=== PATIENT | female | born 1965 | race Caucasian/White ===

== ENCOUNTER 2017-04-12 18:13 | Emergency (ER) | payer SELFPAY ==
[~2017-04-12] VITALS: Ht 167.6 cm; Wt 81.5 kg
[~2017-04-12 18:13] MED LIST: ADVAI250I PO; ALBU8I INH; VENTAER INH
[2017-04-12 18:14] VITALS: BP 124/71; PULSE 126; RESP 20; TEMP 101.3; O2SAT 95
--- NOTE | 2017-04-12 18:57 | RADRPT ---
EXAM DATE/TIME: 04/12/2017 18:37 [facility] COMPARISON: CHEST PA & LAT, June 14, 2015, 9:02. INDICATIONS : Cold and flu like symtoms for 1 month. MEDICAL HISTORY : Chronic obstructive pulmonary disease. Asthma. SURGICAL HISTORY : None. ENCOUNTER: Initial ACUITY: 1 month PAIN SCORE: 4/10 LOCATION: Bilateral chest FINDINGS: There is right base infiltrate compatible to pneumonia. I believe this is mostly in the right middle lobe. Left lung reasonably clear. No effusion demonstrated. No pneumothorax. CONCLUSION: Right middle lobe pneumonia. Vj Elizondo MD on April 12, 2017 at 18:54 Board Certified Radiologist. This report was verified electronically.
[2017-04-12 19:05] LABS: AUTOMATED NEUTROPHIL # 7.4 TH/MM3 (1.8-7.7); BASOPHIL # 0.1 TH/MM3 (0-0.2); BASOPHIL % 0.5 % (0.0-2.0); EOSINOPHIL # 0.1 TH/MM3 (0-0.4); EOSINOPHIL % 0.9 % (0.0-4.0); HEMATOCRIT 38.8 % (35.0-46.0); HEMOGLOBIN 13.3 GM/DL (11.6-15.3); LYMPH % 19.1 % (9.0-44.0); MEAN CELL VOLUME 89.1 FL (80.0-100.0); MEAN CORPUSCULAR HEMOGLOBIN 30.5 PG (27.0-34.0); MEAN CORPUSCULAR HGB CONC 34.3 % (32.0-36.0); MEAN PLATELET VOLUME 7.6 FL (7.0-11.0); MONO % 9.8 % (0.0-8.0); NEUT % 69.7 % (16.0-70.0); PLATELET COUNT 356 TH/MM3 (150-450); RED BLOOD COUNT 4.36 MIL/MM3 (4.00-5.30); RED CELL DISTRIBUTION WIDTH 13.6 % (11.6-17.2); WHITE BLOOD COUNT 10.6 TH/MM3 (4.0-11.0)
[2017-04-12 19:19] LABS: BICARBONATE 24.6 MEQ/L (21.0-32.0); CALCIUM 9.2 MG/DL (8.5-10.1); CREATININE 0.74 MG/DL (0.50-1.00)
[2017-04-12] MEDS ORDERED: ACETAMINOPHEN 325 MG TAB PO ONE (20:15)
[2017-04-12] MEDS ORDERED: VENTAER INH (20:21)
[2017-04-12] MEDS ORDERED: LEVOFLOXACIN 750 MG PREMIX INJ 150 ML IV ONE (20:30)
[2017-04-12] MEDS ORDERED: AZITHROMYCIN INJ 500 MG in SODIUM CHLOR 0.9% 250 ML INJ 250 ML IV ONE (20:30)
[2017-04-12] MEDS ORDERED: LEVA750T9 PO (20:36)
[2017-04-12] MEDS ORDERED: ALBUAER3 INH (20:36)
[2017-04-12] MEDS ORDERED: VIST50CA PO (20:36)
--- NOTE | 2017-04-12 21:00 | PD ---
HPI Chief Complaint: Cold / Flu Symptoms Time Seen by Provider: 20:13 Travel History International Travel<30 days: No Contact w/Intl Traveler<30days: No Traveled to known affect area: No History of Present Illness HPI 51-year-old female that presents to the ED for evaluation of cold-like symptoms. Per patient she's had cold like symptoms for about a month and it seemed like he got better until Sunday she started getting sick again. Per patient since that she's been having bad cough and congestion and body aches. She denies any sick contacts. Per patient most of her family members have been better but only her has been getting worse. She does have a history of COPD and uses inhalers. She states that she has no insurance and borrows the inhalers from the neighbor. She denies any medical issues. She does have allergies to Bactrim and cephalexin. She denies any headache. No recent travel. No blood thinner use. No chest pain. Cough is productive. She denies feeling short of breath at times with a bad cough. Productive cough. PFSH Past Medical History Arthritis: No Asthma: Yes Autoimmune Disease: No Blood Disorders: No Anxiety: No Depression: No Heart Rhythm Problems: No Cancer: No Cardiovascular Problems: No High Cholesterol: No Chest Pain: No Congestive Heart Failure: No COPD: Yes Cerebrovascular Accident: No Diabetes: No Diminished Hearing: No Gastrointestinal Disorders: No GERD: No Glaucoma: No Headaches: No Hepatitis: No Hiatal Hernia: No Hypertension: No Kidney Stones: No Musculoskeletal: No Neurologic: No Psychiatric: No Reproductive: No Respiratory: Yes (COPD) Myocardial Infarction: No Renal Failure: No Seizures: No Sickle Cell Disease: No Sleep Apnea: No Thyroid Disease: No Ulcer: No Tetanus Vaccination: > 5 Years Influenza Vaccination: No ?: Not : 6 Para: 4 Miscarriage: 3 Past Surgical History AICD: No Hysterectomy: No Pacemaker: No Other Surgery: Yes (SINUS SURGERY) Social History Alcohol Use: Yes (weekly) Tobacco Use: Yes (3/4 ppd) Substance Use: No (marijuana) Allergies-Medications (Allergen,Severity, Reaction): Coded Allergies: cephalexin (Unverified Allergy, Severe, HIVES, 04/12/17) sulfamethoxazole (Unverified Allergy, Intermediate, hives, 04/12/17) trimethoprim (Unverified Allergy, Intermediate, hives, 04/12/17) Reported Meds & Prescriptions Reported Meds & Active Scripts Active Vistaril (Hydroxyzine Pamoate) 50 Mg Cap 50 Mg PO BID PRN Proair Hfa 8.5 GM Inh (Albuterol Sulfate) 90 Mcg/Act Aer 2 Puff INH Q4-6H PRN 108 mcg/actuation Levaquin (Levofloxacin) 750 Mg Tablet 750 Mg PO DAILY 10 Days Reported Ventolin Hfa 18 GM Inh (Albuterol Sulfate) 90 Mcg/Act Aer 2 Puff INH Q4H PRN Review of Systems Except as stated in HPI: all other systems reviewed are Neg Physical Exam Narrative GENERAL: Well-nourished, well-developed patient in no apparent distress. SKIN: Warm and dry. HEAD: Atraumatic. Normocephalic. EYES: Pupils equal and round reactive to light and accommodation. No scleral icterus. No injection or drainage. ENT: No nasal bleeding or discharge. Mucous membranes pink and moist. TMs are clear with no sign of infection or perforation. No mastoid tenderness. Ear canals are intact bilaterally. No lymphadenopathy. Nostril mucosa is red and moist with clear mucus noted. No sinus tenderness to palpation noted. Tonsils are not enlarged or swollen. No ulvua Deviation. Tongue is midline. NECK: Trachea midline. No JVD. No meningeal signs noted CARDIOVASCULAR: Regular rate and rhythm. RESPIRATORY: No accessory muscle use. Clear to auscultation. Breath sounds equal bilaterally. GASTROINTESTINAL: Abdomen soft, non-tender, nondistended. Hepatic and splenic margins not palpable. MUSCULOSKELETAL: Extremities without clubbing, cyanosis, or edema. No obvious deformities. NEUROLOGICAL: Awake and alert. No obvious cranial nerve deficits. Motor grossly within normal limits. Five out of 5 muscle strength in the arms and legs. Normal speech. PSYCHIATRIC: Appropriate mood and affect; insight and judgment normal. Data Data Last Documented VS Vital Signs Date Time Temp Pulse Resp B/P (MAP) Pulse Ox O2 Delivery O2 Flow Rate FiO2 04/12/17 20:19 94 Room Air 04/12/17 18:14 101.3 126 20 124/71 (88) Orders Orders Chest, Pa & Lat (04/12/17 ) Influenzae A/B Antigen (04/12/17 18:25) Complete Blood Count With Diff (04/12/17 18:25) Basic Metabolic Panel (Bmp) (04/12/17 18:25) Acetaminophen (Tylenol) (04/12/17 20:15) Azithromycin Inj (Zithromax Inj) (04/12/17 20:30) Levofloxacin 750 Mg Premix Inj (Levaquin (04/12/17 20:30) Ed Discharge Order (04/12/17 20:42) Labs Laboratory Tests Test 04/12/17 18:30 White Blood Count 10.6 TH/MM3 Red Blood Count 4.36 MIL/MM3 Hemoglobin 13.3 GM/DL Hematocrit 38.8 % Mean Corpuscular Volume 89.1 FL Mean Corpuscular Hemoglobin 30.5 PG Mean Corpuscular Hemoglobin Concent 34.3 % Red Cell Distribution Width 13.6 % Platelet Count 356 TH/MM3 Mean Platelet Volume 7.6 FL Neutrophils (%) (Auto) 69.7 % Lymphocytes (%) (Auto) 19.1 % Monocytes (%) (Auto) 9.8 % Eosinophils (%) (Auto) 0.9 % Basophils (%) (Auto) 0.5 % Neutrophils # (Auto) 7.4 TH/MM3 Lymphocytes # (Auto) 2.0 TH/MM3 Monocytes # (Auto) 1.0 TH/MM3 Eosinophils # (Auto) 0.1 TH/MM3 Basophils # (Auto) 0.1 TH/MM3 CBC Comment DIFF FINAL Differential Comment Blood Urea Nitrogen 10 MG/DL Creatinine 0.74 MG/DL Random Glucose 101 MG/DL Calcium Level 9.2 MG/DL Sodium Level 133 MEQ/L Potassium Level 3.6 MEQ/L Chloride Level 98 MEQ/L Carbon Dioxide Level 24.6 MEQ/L Anion Gap 10 MEQ/L Estimat Glomerular Filtration Rate 82 ML/MIN MDM Medical Decision Making Medical Screen Exam Complete: Yes Emergency Medical Condition: Yes Medical Record Reviewed: Yes Interpretation(s) Influenza negative Last Impressions Chest X-Ray 04/12/17 0000 Signed Impressions: Service Date/Time: April 18:37 - CONCLUSION: Right middle lobe pneumonia. Vj Elizondo MD CBC & BMP Diagram 04/12/17 18:30 Calcium Level 9.2 Differential Diagnosis Pneumonia versus bronchitis versus sinusitis Narrative Course 51-year-old female that presents to the ED for evaluation of cold like symptoms. Patient was properly examined and was found to have signs and symptoms consistent appears to be possible pneumonia. Labs and imaging ordered in triage. Labs and imaging came back positive for pneumonia. No obvious leukocytosis. Patient does appear to be slightly tachycardic and has a fever. She was given Tylenol here. Patient will be started on IV Levaquin and given a prescription for Levaquin as she does have a history of COPD. She does have allergies to cephalosporins. She was given a voucher to help pay for her meds. She was given a refill of her albuterol. She was given a prescription for Vistaril to help with anxiety and sleep. Told to follow closely with PCP. See ED worsening symptoms. Take OTC meds as needed. Case discussed with my attending who agrees with plan. Diagnosis Primary Impression: Pneumonia Qualified Codes: J18.1 - Lobar pneumonia, unspecified organism Patient Instructions: General Instructions Additional Instructions: Motrin and Tylenol for pain and fever. You can use [id number] antihistamine as well as well as Mucinex as needed for runny nose and congestion. Cough drops for cough as needed. Drink plenty of fluids. Follow-up with PCP. See ED for worsening symptoms. Med/Other Pt SpecificInfo: Prescription(s) given Scripts Hydroxyzine Pamoate (Vistaril) 50 Mg Cap 50 MG PO BID Y for SLEEP, #10 CAP 0 Refills Prov: Jose Cline MD 04/12/17 Albuterol 8.5 GM Inh (Proair Hfa 8.5 GM Inh) 90 Mcg/Act Aer 2 PUFF INH Q4-6H Y for SHORTNESS OF BREATH, #1 INHALER 0 Refills 108 mcg/actuation Prov: Jose Cline MD 04/12/17 Levofloxacin (Levaquin) 750 Mg Tablet 750 MG PO DAILY for Infection for 10 Days, #10 TAB 0 Refills Prov: Jose Cline MD 04/12/17 Disposition: 01 DISCHARGE HOME Condition: Stable Mike Freedman Apr 12, 2017 21:00
== END 2017-04-12 22:58 | disposition home or self-care (01) ==
LOC: NEPE 18:13
DX: J18.1 Lobar pneumonia, unspecified organism (principal); J44.0 Chronic obstructive pulmonary disease with (acute) lower respiratory infection; F17.200 Nicotine dependence, unspecified, uncomplicated
CPT/HCPCS: 71046; 80048; 85025; 87804; 96365; 99284; J1956